=== PATIENT | male | born 1980 | race African-American/Black ===

== ENCOUNTER 2020-02-27 01:15 | Emergency (ER) | payer OTHER ==
[~2020-02-27] VITALS: Ht 162.6 cm; Wt 58.1 kg
[2020-02-27] MEDS ORDERED: NO HOME MEDS (01:25)
[2020-02-27 02:24] VITALS: BP 127/97
== END 2020-02-27 02:30 | disposition home or self-care (01) ==
LOC: ER 01:15
DX: F19.90 Other psychoactive substance use, unspecified, uncomplicated (principal); T40.995A Adverse effect of other psychodysleptics [hallucinogens], initial encounter; Z88.1 Allergy status to other antibiotic agents; Y92.89 Other specified places as the place of occurrence of the external cause

== ENCOUNTER 2020-03-25 10:31 | Emergency (ER) | payer OTHER ==
[~2020-03-25] VITALS: Ht 165.1 cm; Wt 61.2 kg
[~2020-03-25 10:31] MED LIST: NO HOME MEDS
[2020-03-25 10:54] LABS: ABSOLUTE NEUTROPHILS 3.5 thou/uL (1.4-8.2); BASOPHILS 0.9 % (0.0-2.0); EOSINOPHILS 0.2 % (0.0-3.0); HEMATOCRIT 40.9 % (42.0-52.0); HEMOGLOBIN 13.2 gm/dL (14.0-18.0); MCH 26.8 pg (26.0-34.0); MCHC 32.3 g/dL (28.0-37.0); MONOCYTES 7.6 % (1.0-8.0); PLATELET COUNT 307 thou/uL (150-400); POLYS 59.3 % (36.0-66.0); RBC 4.93 mil/uL (4.50-6.00); RDW 14.1 % (10.5-14.5); WBC 5.9 thou/uL (4.0-11.0)
[2020-03-25 11:10] LABS: CALCIUM 9.7 mg/dL (8.5-10.1); CREATININE 0.8 mg/dL (0.7-1.3)
[2020-03-25 11:30] LABS: URINE BILIRUBIN NEGATIVE (Negative); URINE BLOOD NEGATIVE (Negative); URINE CLARITY CLEAR; URINE COLOR YELLOW; URINE GLUCOSE-RANDOM* NEGATIVE (Negative); URINE KETONES NEGATIVE (Negative); URINE LEUKOCYTES-REFLEX NEGATIVE (Negative); URINE NITRITE-REFLEX NEGATIVE (Negative); URINE PROTEIN (DIPSTICK) NEGATIVE (Negative); URINE UROBILINOGEN 0.2 E.U./dl (0.2-1.0)
[2020-03-25 11:36] LABS: AMP/METHAMP Negative (Negative); BARBITURATES Negative (Negative); BENZODIAZEPINES Negative (Negative); COCAINE Negative (Negative); METHADONE Negative (Negative); OPIATES Negative (Negative); PCP POSITIVE (Negative)
--- NOTE | 2020-03-25 12:15 | EKG ---
[place] [address] [facility] [place] [address] ELECTROCARDIOGRAM REPORT Name: NELLY HOOKS Room #: REG Fritz#: [id number] Admission: 03/25/20 Attend Phys: Discharge: Date of : 84 Report #: [id number] [facility] ED Test Date: 2020-03-25 Test Time: 10:39:55 Pat Name: NELLY HOOKS Department: Room: Gender: M [employer] Engine [employer]ic: REHANA : 1980 Requested By: Macy Suggs Order Number: [id number] MD: Leighton Corona Measurements Intervals Baylis Rate: 81 P: 73 AL: 149 QRS: 59 QRSD: 79 T: 60 QT: 370 QTc: 430 Interpretive Statements Sinus rhythm RSR' in V1 or V2, probably normal variant Consider left ventricular hypertrophy No previous ECG available for comparison Electronically Signed On 03-25-2020 12:15:46 [employer] by Leighton Corona [email or web address] <ELECTRONICALLY SIGNED> By: Leighton Corona MD, [facility] 03/25/20 1215 1039 1039 Leighton Corona MD, FACC /EPI
[2020-03-25 13:05] VITALS: BP 122/74
== END 2020-03-25 13:54 | disposition home or self-care (01) ==
LOC: ER 10:31
PROVIDERS: Emergency Medicine
DX: F16.929 Hallucinogen use, unspecified with intoxication, unspecified (principal); Z88.1 Allergy status to other antibiotic agents